=== PATIENT | female | born 1995 | race Two or more races ===

== ENCOUNTER 2017-11-21 05:46 | Emergency (ER) | payer OTHER ==
[~2017-11-21] VITALS: Ht 160 cm; Wt 59.0 kg
[2017-11-21] MEDS ORDERED: NKM (05:50)
[2017-11-21 06:37] LABS: HEMATOCRIT 39.2 % (37.0-47.0); HEMOGLOBIN 13.1 G/DL (12.0-16.0); MEAN CORPUSCULAR VOLUME 84 FL (80-99); PLATELET COUNT 290 K/UL (150-450); RED BLOOD COUNT 4.64 M/UL (4.20-5.40); RED CELL DISTRIBUTION WIDTH 11.5 % (11.6-14.8); WHITE BLOOD COUNT 10.6 K/UL (4.8-10.8)
[2017-11-21 06:47] LABS: ANION GAP 16 mmol/L (5-15); BLOOD UREA NITROGEN 10 mg/dL (7-18); CALCIUM 8.2 MG/DL (8.5-10.1); CARBON DIOXIDE 19 MMOL/L (21-32); CHLORIDE 100 MMOL/L (98-107); CREATININE 1.3 MG/DL (0.55-1.30); POTASSIUM 4.1 MMOL/L (3.5-5.1); SODIUM 135 MMOL/L (136-145)
[2017-11-21 06:51] LABS: ALANINE AMINOTRANSFERASE 17 U/L (12-78); ALBUMIN 4.2 G/DL (3.4-5.0); ALKALINE PHOSPHATASE 65 U/L (46-116); ASPARTATE AMINO TRANSFERASE 26 U/L (15-37); BILIRUBIN,TOTAL 0.4 MG/DL (0.2-1.0)
[2017-11-21 07:32] LABS: APPEARANCE,URINE CLEAR; BILIRUBIN, URINE NEGATIVE (NEGATIVE); COLOR,URINE PALE YELLOW; GLUCOSE, URINE (UA) NEGATIVE (NEGATIVE); KETONES,URINE 2+ (NEGATIVE); LEUKOCYTE ESTERASE ,URINE NEGATIVE (NEGATIVE); NITRITE,URINE NEGATIVE (NEGATIVE); PH,URINE 5 (4.5-8.0); PROTEIN,URINE 2+ (NEGATIVE); UROBILINOGEN,URINE NORMAL MG/DL (0.0-1.0)
[2017-11-21 07:55] VITALS: BP 124/71
--- NOTE | 2017-11-21 09:28 | Emergency Room Report ---
History of Present Illness General Chief Complaint: Seizure Source: Patient, EMS Present Illness HPI 22-year-old female, no significant past medical history, presenting with drug intoxication. Patient states that she went to a alliance party last night, drank a little bit of alcohol, cocaine, and Juliette. States that she has taken these drugs in the past. States that she felt like she had a seizure, does not know the amount of time Currently she is awake and alert, sober, no complaints Allergies: Coded Allergies: No Known Allergies (Unverified , 11/21/17) Patient History Past Medical History: see triage record Past Surgical History: none Pertinent Family History: none Last Menstrual Period: unk Reviewed Nursing Documentation: PMH: Agreed, PSxH: Agreed Nursing Documentation-PMH Past Medical History: No Stated History Review of Systems All Other Systems: negative except mentioned in HPI Physical Exam Vital Signs Date Time Temp Pulse Resp B/P (MAP) Pulse Ox O2 Delivery O2 Flow Rate FiO2 11/21/17 05:45 98.4 121 16 124/71 99 11/21/17 07:55 Room Air Sp02 EP Interpretation: reviewed, normal General Appearance: no apparent distress, alert, GCS 15, non-toxic, other - calm and conversing Head: normocephalic, atraumatic Eyes: bilateral eye EOMI, bilateral eye other - pupils dilated ENT: normal ENT inspection, normal pharynx, normal voice, moist mucus membranes Neck: normal inspection, full range of motion, supple Respiratory: normal inspection, lungs clear, normal breath sounds, no respiratory distress, no retraction, no wheezing, speaking full sentences, chest symmetrical Cardiovascular #1: normal inspection, regular rate, rhythm, no edema, normal capillary refill Cardiovascular #2: 2+ radial (R), 2+ radial (L) Gastrointestinal: normal inspection, non tender, soft, non-distended, no guarding Musculoskeletal: normal inspection, back normal, normal range of motion, non- tender Neurologic: normal inspection, alert, oriented x3, responsive, de icer III-XII nml as tested, motor strength/tone normal, sensory intact, normal gait, speech normal Psychiatric: normal inspection, judgement/insight normal, memory normal Skin: normal inspection, normal color, no rash, warm/dry, well hydrated, normal turgor Medical Decision Making Diagnostic Impression: Primary Impression: Seizure Additional Impression: Drug overdose, multiple drugs ER Course 22-year-old female presenting with chart intoxication, possible seizure, no history of seizures DDX: Drug intoxication Electrolyte disturbance: hypoglycemia vs. hyponatremia vs. hypocalcemia vs. hypomagnesemia Plan: BGM EKG, UCG Labs, tox labs ER course: No further seizures in ED Has been stable during ED stay. AOx4, no neurological signs or symptoms Ambulatory, calm and conversing No meningismus Labs are negative with the exception of toxicology labs Disposition: Patient will be discharged to home. Patient instructed to refrain from altered use Patient is to follow up with their primary care doctor in 5 days Strict return precautions discussed such as severe headache, fever, chills, neck pain, prolonged or increased frequency of seizures. Patient verbalized understanding and agrees with plan. Last Vital Signs Date Time Temp Pulse Resp B/P (MAP) Pulse Ox O2 Delivery O2 Flow Rate FiO2 11/21/17 07:55 98.4 98 16 124/71 99 Room Air Disposition: HOME, SELF-CARE Condition: Improved Referrals: NOT CHOSEN IPA/MD,REFERRING (PCP) Patient Instructions: Drug Overdose, Seizure, Adult Additional Instructions: PLEASE REFRAIN FROM ALL DRUG USE PLEASE FOLLOW UP WITH YOUR DOCTOR IN 1 WEEK Johnny Hopson M.D. Nov 21, 2017 09:28
--- NOTE | 2017-11-23 19:37 | Cardiology Report ---
APPROVED REPORT EKG Measurement Heart [id number] Sinus tachycardia Possible Left atrial enlargement Borderline ECG
== END 2017-11-21 07:55 | disposition home or self-care (01) ==
LOC: EDBD 05:46 → EMR 07:52
DX: R56.9 Unspecified convulsions (principal); T40.5X4A Poisoning by cocaine, undetermined, initial encounter; T43.624A Poisoning by amphetamines, undetermined, initial encounter; Y92.89 Other specified places as the place of occurrence of the external cause
CPT/HCPCS: 36415; 80053; 80307; 81003; 81025; 85025; 93005; 96360; 99284; G0480; 80329